=== PATIENT | female | born 1995 | race Caucasian/White ===

== ENCOUNTER → 2018-05-07 | Outpatient (CLI) | payer BC ==
--- NOTE | 2018-05-07 15:09 | MAMMOGRAPHY REPORT ---
ULTRASOUND OF RIGHT BREAST: 05/07/2018 CLINICAL HISTORY: The patient reports a palpable lump in the right breast since the beginning . The lump was tender when she first felt it. COMPARISON: No prior exams were available for comparison. Findings: Real-time, high-resolution targeted ultrasound was performed of the area of the palpable juana mp pointed out by the patient, in the right breast at approximately 3:00, 5 cm from the nipple. Ultr asound was also performed of the right 4 to 5:00 breast. Sonographically normal tissue is seen in th asad regions, without evidence of a mass or other suspicious sonographic abnormality. IMPRESSION: ACR BI-RADS CATEGORY 1: NEGATIVE No suspicious sonographic abnormality at the site of the palpable lump and pain pointed out by the pa tient in the right breast. There is no sonographic evidence of malignancy. Recommend clinical follow -up. The patient was verbally notified of the results. Rin Castro M.D. ah/:05/07/2018 10:13:54 Produce Inspector: Rin Castro MD, [facility] letter sent: Normal 1/2 BI-RADS Code: ACR BI-RADS Category 1: Negative
== END | disposition home or self-care (01) ==
LOC: C.MAMM 09:57
PROVIDERS: ATTEND Physician Assistant Medical
DX: R92.2 Inconclusive mammogram (principal); N64.4 Mastodynia